=== PATIENT | female | born 1995 | race African-American/Black ===

== ENCOUNTER 2019-07-05 10:36 | Emergency (ER) | payer MEDICAID, SELFPAY ==
[2019-07-05 11:00] VITALS: BP 107/54; PULSE 84; RESP 16; TEMP 37.4; O2SAT 99
--- NOTE | 2019-07-05 11:33 | ED.URI ---
HPI - URI/Sore Throat General Chief Complaint: Upper Respiratory Infection Stated Complaint: Fever/Dizziness/Chest pain Time Seen by Provider: 07/05/19 11:05 Source: patient and RN notes reviewed Mode of arrival: ambulatory Limitations: no limitations History of Present Illness HPI Narrative: Patient presents today complaining of nasal congestion, fatigue, feeling faint without syncopal episode, sore throat, body aches, decreased appetite. Symptoms began 3 days ago. She has been taking Tylenol and Robitussin without much relief. Son is ill with similar symptoms and accompanies her to express care today. He is positive for influenza A. MD elicited complaint: other (Body aches, fatigue) Related Data Home Medications Medication Instructions Recorded Confirmed No Home Medications 07/05/19 07/05/19 Allergies Allergy/AdvReac Type Severity Reaction Status Date / Time No Known Allergies Allergy Verified 07/05/19 11:26 Review of Systems Review of Systems: Narrative: CONSTITUTIONAL: Denies fever, chills, or sweats.+ Body aches, fatigue, decreased appetite EYES: Denies visual changes, redness, or discharge. ENT: Denies rhinorrhea, congestion, or otalgia.+ Sore throat CARDIOVASCULAR: Denies chest pain, palpitations, or edema. RESPIRATORY: Denies cough or dyspnea. GASTROINTESTINAL: Denies abdominal pain, nausea, vomiting, or diarrhea. GENITOURINARY: Denies dysuria or hematuria. SKIN: Denies rash, itching, or wounds. MUSCULOSKELETAL: Denies back pain, joint pain, or myalgia. NEUROLOGIC: Denies numbness, tingling, or weakness.+ Headache PSYCH: Denies depression or anxiety. PMFSH Comments At time of signature, I have reviewed and agree with nursing past medical, surgical, social and family history unless otherwise noted. Please see nursing chart for further information. There is no relevant family history pertinent to the presenting complaint Exam Narrative: Exam Narrative: GENERAL: Well-appearing, well-nourished, and in no acute distress. HEAD: Normocephalic, atraumatic. EYES: EOMI. No redness or drainage. Conjunctivae normal. ENT: Mucous membranes pink and moist. Nares clear. No rhinorrhea. TMs normal bilaterally. Throat normal. Uvula midline. NECK: Normal AROM. Supple. No lymphadenopathy. CHEST: No respiratory distress. Clear to auscultation. HEART: Regular rate and rhythm. No murmur appreciated. Normal peripheral pulses. EXTREMITIES: Normal range of motion. No edema. SKIN: Warm, dry, no rash. NEURO: No focal deficits. Alert and oriented x3. Gait steady. PSYCH: Normal affect. No signs of depression or anxiety. Course Vital Signs Vital signs: Vital Signs Temperature 99.3 F 07/05/19 11:00 Pulse Rate 84 07/05/19 11:00 Respiratory Rate 16 07/05/19 11:00 Blood Pressure 107/54 L 07/05/19 11:00 Pulse Oximetry 99 07/05/19 11:00 Temperature 99.3 F 07/05/19 11:00 Pulse Rate 84 07/05/19 11:00 Respiratory Rate 16 07/05/19 11:00 Blood Pressure 107/54 L 07/05/19 11:00 Pulse Oximetry 99 07/05/19 11:00 Reviewed MDM - URI/Sore Throat Differential Diagnosis Differential diagnosis: Likely upper respiratory infection, sinusitis, influenza and pharyngitis Lab Data Attestation: I reviewed the patient's lab results. Labs: Influenza A Screen Negative Reference Range: Negative Influenza B Screen Negative Reference Range: Negative Critical Care Time Critical Care Time Critical Care Time: No Discharge Plan Discharge Clinical Impression: Flu-like symptoms Patient Disposition: Home, Self-Care Condition: Stable Instructions: Influenza (DC) Additional Instructions: Your swab is negative for influenza, however, your symptoms are consistent with the flu. Continue to rest and stay hydrated. Take medications at home for symptoms. Symptoms should start to resolve in the next couple of days. Follow-up with your doctor in 3 to 4
== END 2019-07-05 11:37 | disposition home or self-care (01) ==
PROVIDERS: Emergency Provider Nurse Practitioner
DX: R53.83 Other fatigue (principal); R09.81 Nasal congestion; J02.9 Acute pharyngitis, unspecified; R42 Dizziness and giddiness
CPT/HCPCS: 87804; 99212; G0463

== ENCOUNTER 2020-09-08 12:05 | Emergency (ER) | payer OTHER, SELFPAY ==
[2020-09-08 12:17] VITALS: BP 117/69; PULSE 78; RESP 16; TEMP 36.9; O2SAT 100
--- NOTE | 2020-09-08 12:54 | ED.EYEPROB ---
HPI - Eye Problem General Chief complaint: Eye Problems Stated complaint: Eye Pain Time Seen by Provider: 09/08/20 12:35 Source: patient and RN notes reviewed Mode of arrival: ambulatory Limitations: no limitations History of Present Illness HPI Narrative: Eye problem 25-year-old female who presents to [facility] care with complaints of redness, irritation,and drainage from left eye since yesterday. Patient states that her vision has not been effected, denies any sharp pain to her left eye or any injury or known foreign body in left eye. Patient states that her left eye is red and slightly swollen is itching and feel irritated. Denies any cold symptoms or any history of seasonal allergies.Patient does have small subconjunctival hemorrhage to inner left eye, conjunctiva is red, no double vision,no pain with eye movement or any fevers. MD chief complaint: eye redness Duration: progressively worsening Location: left eye Related Data Allergies Allergy/AdvReac Type Severity Reaction Status Date / Time No Known Allergies Allergy Verified 07/05/19 11:26 Review of Systems Review of Systems: Narrative: CONSTITUTIONAL: Denies fever, chills, or sweats. EYES: Denies visual changes, positive for redness, or discharge left eye with itching and irritation. ENT: Denies rhinorrhea, congestion, sore throat, or otalgia. CARDIOVASCULAR: Denies chest pain, palpitations, or edema. RESPIRATORY: Denies cough or dyspnea. GASTROINTESTINAL: Denies abdominal pain, nausea, vomiting, or diarrhea. GENITOURINARY: Denies dysuria or hematuria. SKIN: Denies rash or itching. MUSCULOSKELETAL: Denies back pain, joint pain, or myalgia. NEUROLOGIC: Denies headache, numbness, or weakness. PSYCHIATRIC: Denies anxiety or depression. All systems reviewed & are unremarkable except as noted in HPI and below PMFSH Past Medical History Medical History (Updated 09/12/20 @ 15:53 by Brittnee Jones NP) Right arm fracture Surgical History Surgical History (Updated 09/12/20 @ 15:53 by Brittnee Jones NP) No significant past surgical history Family History Family History (Updated 09/12/20 @ 15:52 by Brittnee Jones NP) Other No significant family history Social History Social History (Updated 09/12/20 @ 15:39 by Brittnee Jones NP) Smoking status: Never smoker Alcohol intake: current Alcohol use details: rare social Substance use: never Living arrangements: with family Gender identity (if verbalized by the patient): Female Comments At time of signature, agree with nursing past medical, surgical, social and family history. There is no relevant family history pertinent to the presenting complaint Exam Narrative: Exam Narrative: GENERAL: Well-appearing, well-nourished, and in no acute distress. HEAD: Normocephalic, atraumatic. EYES: PERRLA and EOMI. left eye has subconjunctival hemorrhage to inner aspect of left eye with some mild swelling noted under left eye, yellowish drainage noted at inner canthus with stated itching and some feelings of irritation, denies any feelings of foreign body, no injury to left eye or any acute sharp pain voiced, conjunctiva is red. ENT: Nares clear, no rhinorrhea or epistaxis. Mucous membranes moist. NECK: Supple.no lymphadenopathy CHEST: Clear to auscultation. No respiratory distress.SAO2 100% on room air HEART: Regular rate and rhythm. No murmur heard. Normal peripheral pulses. ABDOMEN: Soft, nontender, nondistended, normal active bowel sounds. EXTREMITIES: Normal range of motion. No edema. SKIN: Warm, dry, no rash. NEURO: No focal deficits. Alert and oriented x3. Course Vital Signs Vital signs: Vital Signs Temperature 36.9 C 09/08/20 12:17 Pulse Rate 78 09/08/20 12:17 Respiratory Rate 16 09/08/20 12:17 Blood Pressure 117/69 09/08/20 12:17 Pulse Oximetry 100 09/08/20 12:17 Temperature 36.9 C 09/08/20 12:17 Pulse Rate 78 09/08/20 12:17 Respiratory Rate 16 09/08/20 1
== END 2020-09-08 13:11 | disposition home or self-care (01) ==
PROVIDERS: Emergency Provider Registered Nurse
DX: H10.32 Unspecified acute conjunctivitis, left eye (principal)
CPT/HCPCS: 99213; G0463

== ENCOUNTER 2021-05-23 12:17 | Emergency (ER) | payer OTHER, SELFPAY ==
--- NOTE | 2021-05-23 12:27 | ED.URI ---
HPI - URI/Sore Throat General Chief Complaint: Upper Respiratory Infection Stated Complaint: sore throat/cough Time Seen by Provider: 05/23/21 12:28 Source: patient, RN notes reviewed and old records reviewed Mode of arrival: ambulatory Limitations: no limitations History of Present Illness HPI Narrative: 26-year-old female presents to the [facility] with complaints of a sore throat and cough for about a week. Patient states that she has had a lot of phlegm in her throat for the last week. Coughs at night. Has been taking Robitussin which has helped and hot tea. Denies fevers, chest pain, abdominal pain. Denies any other symptoms Related Data Home Medications Medication Instructions Recorded Confirmed No Home Medications 05/23/21 05/23/21 Allergies Allergy/AdvReac Type Severity Reaction Status Date / Time No Known Allergies Allergy Verified 05/23/21 12:34 Review of Systems Review of Systems: All systems reviewed & are unremarkable except as noted in HPI and below Constitutional: Constitutional: Reports no additional constitutional complaints, Denies chills, Denies fever(s) and Denies headache(s) Eyes: Eyes: Reports no additional eye complaints ENT: Reports as per HPI, Denies vertigo, Denies dizziness, Denies headache(s), Reports nasal congestion and Denies sore throat Comments: Feels like phlegm in her throat, postnasal drip Cardiovascular: Cardiovascular: Reports no additional cardiovascular complaints, Denies chest pain, Denies syncope, Denies rapid heart rate and Denies dyspnea Respiratory: Respiratory: Reports no additional respiratory complaints, Denies cough, Denies dyspnea and Denies wheezing Gastrointestinal: Gastrointestinal: Reports no additional gastrointestinal complaints, Denies abdominal pain, Denies diarrhea, Denies nausea and Denies vomiting Musculoskeletal: Musculoskeletal: Reports no additional musculoskeletal complaints and Denies numbness Integumentary/Breasts: Skin/Breast: Reports system reviewed and no additional complaints, except as docu Neurologic: Reports system reviewed and no additional complaints, except as documented, Denies vertigo, Denies dizziness, Denies syncope, Denies headache(s), Denies focal weakness and Denies numbness Psychiatric: Psychiatric: Reports no additional psychiatric complaints Allergic/Immunologic: Allergic/Immunologic: Reports no additional allergic/immunologic complaints and Denies wheezing PMFSH Past Medical History Medical History (Updated 05/23/21 @ 12:35 by Darcie Bowser) Right arm fracture Surgical History Surgical History (Updated 09/12/20 @ 15:53 by Brittnee Jones NP) No significant past surgical history Family History Family History (Updated 09/12/20 @ 15:52 by Brittnee Jones NP) Other No significant family history Social History Social History (Updated 09/12/20 @ 15:39 by Brittnee Jones NP) Smoking status: Never smoker Alcohol intake: current Alcohol use details: rare social Substance use: never Gender identity (if verbalized by the patient): Female Comments At the time of my signature, I reviewed and agree with the nursing past medical, surgical, social, and family history. There is no relevant family history pertinent to the patient complaint. Exam Const: General: healthy appearing, no acute distress and alert Nutritional Appearance: well nourished Orientation/consciousness: patient oriented x3 Limitations: no limitations HENMT: Head: normal to inspection Ears: external ears normal, TM's normal bilaterally and EAC's normal Face and sinus: normal facial exam Mouth: Yes moist mucous membranes Throat: tonsils normal, uvula midline and postnasal drainage Eyes: Conjunctivae: conjunctivae normal Pupils: Equal, round and reactive pupils present Neck: Neck: normal visual inspection, no lymphadenopathy and no meningeal signs Chest: Chest palpation & inspection: normal inspection of the chest Re
[2021-05-23 12:28] VITALS: BP 123/76; PULSE 91; RESP 16; TEMP 37; O2SAT 100
== END 2021-05-23 12:37 | disposition home or self-care (01) ==
PROVIDERS: Emergency Provider Nurse Practitioner
DX: R09.82 Postnasal drip (principal)
CPT/HCPCS: 99212; G0463